=== PATIENT | male | born 1990 | race Caucasian/White ===

== ENCOUNTER 2018-08-03 22:48 | Emergency (ER) | payer SELFPAY ==
[~2018-08-03] VITALS: Ht 180.3 cm; Wt 77.3 kg
[2018-08-03 23:09] VITALS: BP 132/68
[2018-08-03 23:10] LABS: GLUCOSE,POINT OF CARE 87 MG/DL (70-110)
== END 2018-08-03 23:31 | disposition home or self-care (01) ==
LOC: EMS 22:51
DX: R04.0 Epistaxis (principal); F17.210 Nicotine dependence, cigarettes, uncomplicated; F12.90 Cannabis use, unspecified, uncomplicated